=== PATIENT | female | born 1970 | race Caucasian/White ===

== ENCOUNTER 2019-11-29 05:30 | Day surgery (SDC) | payer OTHER, SELFPAY ==
[2019-11-22 13:06] LABS: BASOPHILS % (AUTO) 0.7 % (0.0-2.0); EOSINOPHILS # (AUTO) 0.1 K/uL (0.0-0.4); EOSINOPHILS % (AUTO) 1.6 % (0.0-4.0); HEMATOCRIT 40.6 % (36-48); HEMOGLOBIN 13.4 g/dL (12.0-16.0); LYMPHOCYTES # (AUTO) 1.8 K/uL (1.0-5.5); LYMPHOCYTES % (AUTO) 32.5 % (20.5-51.5); MEAN CORPUSCULAR HEMOGLOBIN 29 pg (27-31); MEAN CORPUSCULAR HGB CONC 33 % (32-36); MEAN CORPUSCULAR VOLUME 89 fL (79.0-98.0); MONOCYTES # (AUTO) 0.4 K/uL (0.0-1.0); MONOCYTES % (AUTO) 7.2 % (1.7-9.3); NEUTROPHILS # (AUTO) 3.2 K/uL (1.8-7.7); PLATELET COUNT (AUTO) 274 K/uL (130-430); RED BLOOD CELL COUNT(AUTO) 4.56 MIL/uL (4.2-6.2); RED CELL DISTRIBUTION WIDTH 13.9 % (9.0-15.0); WHITE BLOOD COUNT (AUTO) 5.6 K/uL (4.8-10.8)
[2019-11-22 13:23] LABS: CALCIUM 9.7 mg/dL (8.4-11.0); CREATININE 0.74 mg/dL (0.55-1.30); POTASSIUM 4.1 mmol/L (3.5-5.1); TOTAL BILIRUBIN 0.6 mg/dL (0.0-1.0)
[2019-11-22 13:48] LABS: BILIRUBIN,URINE NEGATIVE (NEGATIVE); CLARITY/URINE CLEAR (CLEAR); COLOR,URINE YELLOW (YELLOW); GLUCOSE,URINE NEGATIVE (NEGATIVE); KETONES,URINE NEGATIVE (NEGATIVE); LEUKOCYTE ESTERASE ,URINE NEGATIVE (NEGATIVE); NITRITE, URINE NEGATIVE (NEGATIVE); PH,URINE 5.5 (5.0-8.0); PROTEIN URINE NEGATIVE (NEGATIVE); UROBILINOGEN,URINE 0.2 (0.2-1.0)
[2019-11-22 14:01] LABS: BLOOD, URINE TRACE (NEGATIVE)
[2019-11-22 14:18] LABS: BACTERIA,URINE FEW /HPF (None Seen); WBC,URINE 0-3 /HPF (0-3)
[~2019-11-29] VITALS: Ht 149.9 cm; Wt 76.2 kg
[2019-11-29] MEDS ORDERED: CEFAZOLIN SOD 2 GM in D5W 50 ML IV ONE (06:30)
[2019-11-29 07:02] LABS: BILIRUBIN,URINE NEGATIVE (NEGATIVE); CLARITY/URINE CLEAR (CLEAR); COLOR,URINE YELLOW (YELLOW); GLUCOSE,URINE NEGATIVE (NEGATIVE); KETONES,URINE NEGATIVE (NEGATIVE); LEUKOCYTE ESTERASE ,URINE NEGATIVE (NEGATIVE); NITRITE, URINE NEGATIVE (NEGATIVE); PH,URINE 5.5 (5.0-8.0); PROTEIN URINE NEGATIVE (NEGATIVE); UROBILINOGEN,URINE 0.2 (0.2-1.0)
[2019-11-29 07:04] LABS: BLOOD, URINE TRACE (NEGATIVE)
[2019-11-29] MEDS ORDERED: HYDROmorphone 1 MG INJ. 1 MG/ML AMPUL IVP PRN ×4 (07:15→08:00)
[2019-11-29] MEDS ORDERED: ONDANSETRON HCL 4 MG/2 ML VIAL IVP PRN ×3 (07:15→12:30)
[2019-11-29 07:30] LABS: BACTERIA,URINE FEW /HPF (None Seen); WBC,URINE 0-3 /HPF (0-3)
[2019-11-29 08:02] LABS: HCG,QUAL RESULT NEGATIVE (NEGATIVE)
[2019-11-29] MEDS ORDERED: POLYMYXIN 500,000/BACIT.10,000 UNITS in NS IRR 1 L IR ONE (09:52)
[2019-11-29] MEDS ORDERED: OXYCODONE/ACETAMINOPHEN 5-325 TABLET PO ONE (12:30)
[2019-11-29] MEDS ORDERED: KETOROLAC TROMETHAMINE 30 MG VIAL IVP ONE (12:30)
[2019-11-29] MEDS ORDERED: CLINDAMYCIN 2% VAGINAL CREAM VG ONE (12:42)
[2019-11-29] MEDS ORDERED: WATER FOR IRRIGATION,STERILE 1,000 ML IRRIG.SOLN IR ONE (12:42)
[2019-11-29] MEDS ORDERED: SUCCINYLCHOLINE CHLORIDE 20 MG/ML(QUELICIN) ONE (12:42)
[2019-11-29] MEDS ORDERED: BUPIVACAINE /PF 0.5% 30 ML VIAL ONE (12:42)
[2019-11-29] MEDS ORDERED: NS IRRIG SOLN 1000 ML IR ONE (12:42)
[2019-11-29] MEDS ORDERED: NS 1000 ML IV.SOLN IV ONE (12:42)
[2019-11-29] MEDS ORDERED: KETOROLAC TROMETHAMINE 30 MG VIAL ONE (12:42)
[2019-11-29] MEDS ORDERED: DEXAMETHASONE SOD PHOSPHATE 4 MG/ML VIAL ONE (12:42)
[2019-11-29] MEDS ORDERED: ONDANSETRON HCL 4 MG/2 ML VIAL ONE (12:42)
[2019-11-29] MEDS ORDERED: LR 1,000 ML IV.SOLN IV ONE (12:42)
[2019-11-29] MEDS ORDERED: DESFLURANE 15 MIN GAS INH ONE (12:42)
[2019-11-29] MEDS ORDERED: HYDROmorphone 2 MG/ML VIAL ONE (12:42)
[2019-11-29] MEDS ORDERED: PROPOFOL 200MG/ 20ML VIAL (DIPRIVAN) IV ONE (12:42)
[2019-11-29] MEDS ORDERED: fentaNYL CITRATE/PF 100 MCG/2 ML AMP ONE (12:42)
[2019-11-29] MEDS ORDERED: ROCURONIUM BROMIDE 10 MG/ML (ZEMURON) ONE (12:42)
[2019-11-29 15:13] VITALS: BP_SYST 129
== END 2019-11-29 15:30 | disposition home or self-care (01) ==
LOC: SMU 05:30 → SDS 05:30
PROVIDERS: ATTEND Obstetrics & Gynecology
DX: D25.1 Intramural leiomyoma of uterus (principal); N39.3 Stress incontinence (female) (male); N92.0 Excessive and frequent menstruation with regular cycle; D25.9 Leiomyoma of uterus, unspecified; N81.4 Uterovaginal prolapse, unspecified; Z11.59 Encounter for screening for other viral diseases; Z98.890 Other specified postprocedural states
CPT/HCPCS: 36415; 57288; 57425; 58573; 71046; 80053; 81000 ×2; 81003; 84703; 85025; 86886; 86900; 86901; 88307; 93005; C1727; C1771; C1781; J0330; J0690; J1100; J1170; J1885; J2405; J2704; J3010; J3490; J7030; J7060; J7120; S2900; U0003; E0190